=== PATIENT | male | born 1985 | race Caucasian/White ===

== ENCOUNTER 2020-09-28 17:14 | Emergency (ER) | payer SELFPAY ==
[~2020-09-28] VITALS: Ht 162.5 cm; Wt 77.4 kg
[2020-09-28 17:28] VITALS: BP 120/89
[2020-09-28] MEDS ORDERED: CYCL10TA9 PO (17:29)
[2020-09-28] MEDS ORDERED: IBUP-1780 PO (17:29)
--- NOTE | 2020-09-28 17:30 | ED General ---
General Stated Complaint: FLANK PAIN Source of Information: Patient Exam Limitations: No Limitations History of Present Illness Date Seen by Provider: Sep 28, 2020 Time Seen by Provider: 17:25 Initial Comments 35-year-old male presents via EMS with complaint of right side pain for the past 1 day. States that it started spontaneously, not precipitated by any movement or trauma. He admits always been doing his laying around, not working and not doing much. Just moved to this area 1 month ago and has not established any medical care, although he has no chronic conditions. Has taken nothing for pain. Has not attempted to see a clinic doctor. No recent illness, fever or chills, cough or shortness of air at rest. Pain is worse with movement and worse with deep breath on his right side. Allergies and Home Medications Home Medications Cyclobenzaprine HCl 10 Mg Tablet, 10 MG PO Q8H PRN for SPASMS Prescribed by: AUGUSTO MANDUJANO on 09/28/201728 Ibuprofen 800 Mg Tablet, 800 MG PO Q8H PRN for PAIN Prescribed by: AUGUSTO MANDUJANO on 09/28/201728 Patient Home Medication List Home Medication List Reviewed: Yes Review of Systems Review of Systems Constitutional: no symptoms reported; No chills, No fever, No malaise, No weakness EENTM: no symptoms reported Respiratory: see HPI; No cough, No hemoptysis, No orthopnea, No phlegm, No short of breath, No stridor, No wheezing Cardiovascular: No chest pain, No edema, No palpitations Gastrointestinal: no symptoms reported Musculoskeletal: see HPI; No back pain, No joint pain; muscle pain (R lateral chest wall) Skin: No change in color, No lesions, No rash Past Bgprpoy-Qtvpia-Mwffda Hx Past Med/Social Hx: Reviewed Nursing Past Med/Soc Hx Physical Exam Vital Signs Capillary Refill : Height, Weight, BMI Height: '" Weight: lbs. oz. kg; BMI Method: General Appearance: No Apparent Distress, WD/WN Respiratory: Chest Non Tender, Lungs Clear, Normal Breath Sounds, No Accessory Muscle Use, No Respiratory Distress Cardiovascular: Regular Rate, Rhythm, No Edema, No Gallop, No JVD, No Murmur Gastrointestinal: Normal Bowel Sounds, Non Tender, Soft Back: Normal Inspection, No CVA Tenderness, No Vertebral Tenderness Extremity: Normal Capillary Refill, Normal Inspection, Non Tender Neurologic/Psychiatric: Alert, Oriented x3 Progress/Results/Core Measures Suspected Sepsis SIRS Temperature: Pulse: Respiratory Rate: Blood Pressure / Mean: Results/Orders Vital Signs/I&O Capillary Refill : Departure Impression Primary Impression: Muscle strain of chest wall Qualified Codes: S29.011A - Strain of muscle and tendon of front wall of thorax, initial encounter Disposition: HOME, SELF-CARE Condition: Stable Departure-Patient Inst. Decision time for Depature: 17:26 [facility]: [facility] Instructions: Muscle Strain (DC) Add. Discharge Instructions: [facility] if not improving, ER sooner if worse and unable to see a provider at the clinic Scripts Ibuprofen (Ibuprofen) 800 Mg Tablet 800 MG PO Q8H PRN for PAIN, #30 TAB 0 Refills Prov: AUGUSTO MANDUJANO DO 09/28/20 Cyclobenzaprine HCl (Cyclobenzaprine HCl) 10 Mg Tablet 10 MG PO Q8H PRN for SPASMS, #15 TAB 0 Refills Prov: AUGUSTO MANDUJANO DO 09/28/20 AUGUSTO MANDUJANO DO Sep 28, 2020 17:29
== END 2020-09-28 17:39 | disposition home or self-care (01) ==
LOC: ER FS 17:15
DX: S29.011A Strain of muscle and tendon of front wall of thorax, initial encounter (principal); X58.XXXA Exposure to other specified factors, initial encounter
CPT/HCPCS: 99283

== ENCOUNTER 2020-10-05 23:17 | Emergency (ER) | payer SELFPAY ==
[~2020-10-05] VITALS: Ht 162.6 cm; Wt 81.6 kg
[~2020-10-05 23:17] MED LIST: CYCL10TA9 PO; IBUP-1780 PO
[2020-10-05 23:26] VITALS: BP 135/73
[2020-10-06] MEDS ORDERED: methylPREDNISolone 80 MG/ML (DEPO MEDROL) VIAL IM STA (00:21)
[2020-10-06] MEDS ORDERED: AZITHROMYCIN 250 MG TAB (ZITHROMAX) PO STA (00:21)
[2020-10-06] MEDS ORDERED: AZIT250T12 PO (00:27)
--- NOTE | 2020-10-06 00:27 | ED General ---
General Chief Complaint: Chest Wall Stated Complaint: DIFF BREATHING W/ DEEP BREATHES Nursing Triage Note: pt seen 1 week ago for chest wall pain, states no improvement in condition, did not get flexeril script filled Nursing Sepsis Screen: No Definite Risk Source of Information: Patient History of Present Illness Date Seen by Provider: Oct 05, 2020 Time Seen by Provider: 23:31 Initial Comments 35-year-old male presenting by EMS after having continued right sided chest wall pain. He was seen a week ago for the same thing and states that medication had not helped while he was in the ED and he did not have any money to fill the prescriptions. He continued to have pain and felt like he was having "bubbling in his chest on the right side with certain movements and breathing. He denied any fever or chills. He is a smoker. He denies any direct trauma to his chest wall. He has not called the [facility] clinic to try and establish any follow-up. Allergies and Home Medications Allergies Coded Allergies: No Known Drug Allergies (Unverified , 09/28/20) Home Medications Azithromycin 250 Mg Tablet, 250 MG PO DAILY Prescribed by: MARIANNE LEAHY on 10/06/20 0027 Cyclobenzaprine HCl 10 Mg Tablet, 10 MG PO Q8H PRN for SPASMS Prescribed by: AUGUSTO ESPINOSASTCRUZ on 09/28/20 1729 Ibuprofen 800 Mg Tablet, 800 MG PO Q8H PRN for PAIN Prescribed by: AUGUSTO ESPINOSASTCRUZ on 09/28/20 1729 Patient Home Medication List Home Medication List Reviewed: Yes Review of Systems Review of Systems Constitutional: No chills, No fever EENTM: no symptoms reported Respiratory: see HPI, cough; No wheezing Cardiovascular: chest pain (Pleuritic chest wall pain on the right side) Gastrointestinal: No nausea, No vomiting Genitourinary: no symptoms reported Musculoskeletal: no symptoms reported Skin: no symptoms reported Psychiatric/Neurological: No Symptoms Reported Past Xolkksb-Qmjloj-Pugoxo Hx Past Med/Social Hx: Reviewed Nursing Past Med/Soc Hx Patient Social History Alcohol Use: Denies Use Drug of Choice: Hx of meth use Smoking Status: Current Everyday Smoker Type Used: Cigarettes 2nd Hand Smoke Exposure: No Recent Infectious Disease Expo: No Recent Hopitalizations: No Seasonal Allergies Seasonal Allergies: No Past Medical History Surgeries: Yes (Fisure repair) Rectal Respiratory: No Cardiac: No Neurological: No Genitourinary: No Gastrointestinal: Yes (Rectal fisures) Musculoskeletal: No Endocrine: No HEENT: No Cancer: No Psychosocial: No Blood Disorders: No Physical Exam Vital Signs Vital Signs - First Documented 10/05/20 23:26 Temp 36.9 Pulse 95 B/P (MAP) 135/73 (93) Pulse Ox 100 O2 Delivery Room Air Capillary Refill : Less Than 3 Seconds Height, Weight, BMI Height: '" Weight: lbs. oz. kg; 30.00 BMI Method: General Appearance: No Apparent Distress, WD/WN HEENT: PERRL/EOMI, Pharynx Normal Neck: Full Range of Motion, Non Tender, Supple Respiratory: Lungs Clear, Normal Breath Sounds, No Accessory Muscle Use, No Respiratory Distress; No Pleural Rub, No Rales, No Rhonci, No Stridor, No Wheezing; Other (Tender to palpation on the right lateral chest wall. There is no crepitus or rales) Cardiovascular: Regular Rate, Rhythm, Normal Peripheral Pulses Extremity: Normal Capillary Refill, No Pedal Edema Neurologic/Psychiatric: Alert, Oriented x3 Skin: Normal Color, Warm/Dry Progress/Results/Core Measures Suspected Sepsis Recent Fever Within 48 Hours: No Infection Criteria Present: None New/Unexplained Altered Menta: No Sepsis Screen: No Definite Risk SIRS Temperature: Pulse: 95 Respiratory Rate: Blood Pressure 135 /73 Mean: 93 Results/Orders My Orders Orders - MARIANNE LEAHY MD Chest Pa/Lat (2 View) (10/05/20 23:25) Dexamethasone Injection (Decadron Inje (10/06/20 00:21) Methylprednisolone Acetate Inj (Depo-Med (10/06/20 00:21) Azithromycin Tablet (Zithromax Tablet) (10/06/20 00:21) Vital Signs/I&O 10/05/20 23:26 Temp 36.9 Pulse 95 B/P (MAP) 135/73 (93) Pulse Ox 100 O2 Delivery Room Air Capillary Refill : Less Than 3 Seconds Blood Pressure Mean: 93 Progress Note : Progress Note 2 view chest x-ray did not show any acute pneumonia or pneumothorax. He had no pleural effusion. On my review it looks like he may have some mild inflammation of his lung on the right side compared to the left. With him having some tenderness of the chest wall and increased pain with deep breaths for some pleuritic type chest pain will try a steroid shot here as well as treating him with Zithromax. Counseled on follow-up and return precautions. Advised to check with the clinic at [facility] since he reports that he does not have money to fill prescriptions or get in with PCP Diagnostic Imaging Diagonstic Imaging: Xray Plain Films/CT/US/NM/MRI: chest Comments On my review of his two-view chest x-ray he did not show any definite pne umothorax, pleural effusion, rib fracture. There was some mild inflammation of the lung on the right compared to the left. Departure Impression Primary Impression: Chest wall pain Additional Impressions: Bronchitis Tobacco abuse Pleuritic chest pain Disposition: HOME, SELF-CARE Condition: Stable Departure-Patient Inst. Decision time for Depature: 00:24 Referrals: NO,LOCAL PHYSICIAN (PCP) Primary Care Physician [facility] Patient Instructions: Bronchitis, Adult ED, Quitting Smoking, Pleuritic Chest Pain (DC) Add. Discharge Instructions: Stay well hydrated and get plenty of rest Take the full course of antibiotics to treat for infection and this will help with the inflammation in your side and chest wall. If you have worsening symptoms or are not improving then check in with clinic at [facility] by calling [phone] and setting up and appointment. All discharge instructions reviewed with patient and/or family. Voiced understanding. Scripts Azithromycin (Azithromycin) 250 Mg Tablet 250 MG PO DAILY for 4 Days, #4 TAB 0 Refills Prov: MARIANNE LEAHY MD 10/06/20 MARIANNE LEAHY MD Oct 06, 2020 00:27
--- NOTE | 2020-10-06 06:59 | Diagnostic Imaging Report ---
INDICATION: chest wall pain. TECHNIQUE: Two view chest 11:26 PM CORRELATION STUDY: None FINDINGS: The heart size, mediastinal configuration and pulmonary vasculature are within normal limits. The lungs are clear with no consolidating infiltrate. There is slight blunting of the costophrenic angles which trace pleural effusion versus pleural thickening not excluded.. Visualized osseous structures are unremarkable. IMPRESSION: 1. Negative for acute abnormality of the chest. Question potential trace pleural effusion versus pleural thickening. Dictated by: Dictated on workstation # [id number]
== END 2020-10-06 00:32 | disposition home or self-care (01) ==
LOC: EDUNIT# 23:17 → ER FS 23:19
DX: R07.89 Other chest pain (principal); J40 Bronchitis, not specified as acute or chronic; R07.81 Pleurodynia; I10 Essential (primary) hypertension; F17.200 Nicotine dependence, unspecified, uncomplicated; F17.210 Nicotine dependence, cigarettes, uncomplicated
CPT/HCPCS: 71046; 99284

== ENCOUNTER 2020-11-29 11:46 | Inpatient (IN) | payer SELFPAY ==
[~2020-11-29] VITALS: Ht 170 cm; Wt 77.0 kg
[~2020-11-29 11:46] MED LIST changes: +AZIT250T12 PO
[2020-11-29 12:32] LABS: BASOPHILS % (AUTO) 1 % (0-10); EOSINOPHILS # (AUTO) 0.1 10^3/uL (0.0-0.3); EOSINOPHILS % (AUTO) 1 % (0-10); HEMATOCRIT 42 % (40-54); HEMOGLOBIN 12.1 g/dL (13.3-17.7); LYMPHOCYTES # (AUTO) 1.4 10^3/uL (1.0-4.0); LYMPHOCYTES % (AUTO) 18 % (12-44); MEAN CORPUSCULAR HEMOGLOBIN 20 pg (25-34); MEAN CORPUSCULAR HGB CONC 29 g/dL (32-36); MEAN CORPUSCULAR VOLUME 69 fL (80-99); MEAN PLATELET VOLUME 8.2 fL (9.0-12.2); MONOCYTES # (AUTO) 0.7 10^3/uL (0.0-1.0); MONOCYTES % (AUTO) 9 % (0-12); NEUTROPHILS # (AUTO) 5.5 10^3/uL (1.8-7.8); NEUTROPHILS % (AUTO) 71 % (42-75); PLATELET COUNT 373 10^3/uL (130-400); WHITE BLOOD COUNT 7.7 10^3/uL (4.3-11.0)
--- NOTE | 2020-11-29 12:33 | ED Psychosocial ---
General Chief Complaint: Substance Abuse Stated Complaint: PSYCH EVAL,DETOX Nursing Triage Note: ARRIVED VIA AMB ET STATES HE WANTS DETOXED FROM ETOH. LAST DRINK WAS 2 DAYS AGO. Source: patient Exam Limitations: no limitations History of Present Illness Date Seen by Provider: November 29, 2020 Time Seen by Provider: 12:19 Initial Comments This is a disheveled 35-year-old homeless male presents to the ER via POV with a lady who picked him up off the street yesterday. States that she cleaned him up and was trying to help him. Last night he got a hold of a magic marker and colored all over his face and body. States that he is an alcoholic and he drinks "whatever I can get my hands on". He has been doing this for the past 7 years. States that he has not drank any alcohol for a couple days. Denies any illicit drug use. States that he was recently diagnosed with anal fissures and is taking medication for that, otherwise has no past medical history. He is currently denying any pain. Denies suicidal ideation. Denies visual, auditory hallucinations. Denies fever, chills, cough, shortness of breath, nausea, vomiting, abdominal pain. Allergies and Home Medications Allergies Coded Allergies: No Known Drug Allergies (Unverified , 11/29/20) Home Medications Azithromycin 250 Mg Tablet, 250 MG PO DAILY Prescribed by: MARIANNE LEAHY on 10/06/20 0027 Cyclobenzaprine HCl 10 Mg Tablet, 10 MG PO Q8H PRN for SPASMS Prescribed by: AUGUSTO ESPINOSASTCRUZ on 09/28/20 1729 Ibuprofen 800 Mg Tablet, 800 MG PO Q8H PRN for PAIN Prescribed by: AUGUSTO MANDUJANO on 09/28/20 1729 Patient Home Medication List Home Medication List Reviewed: Yes Review of Systems Constitutional: no symptoms reported EENTM: no symptoms reported Respiratory: no symptoms reported Cardiovascular: no symptoms reported Gastrointestinal: no symptoms reported Genitourinary: no symptoms reported Musculoskeletal: no symptoms reported Skin: no symptoms reported Psychiatric/Neurological: See HPI Past Lwasiyh-Fhnznr-Czstwi Hx Patient Social History Alcohol Use: Regular Use Number of Drinks Today: 0 Drug of Choice: Hx of meth use- DENIES AT THIS VISIT Smoking Status: Current Everyday Smoker Type Used: Cigarettes, Electronic/Vapor 2nd Hand Smoke Exposure: No Recent Infectious Disease Expo: No Recent Hopitalizations: No Seasonal Allergies Seasonal Allergies: No Past Medical History Surgeries: Yes (Fisure repair) Orthopedic, Rectal Respiratory: No Cardiac: No Neurological: No Genitourinary: No Gastrointestinal: Yes (Rectal fisures) Musculoskeletal: No Endocrine: No HEENT: No Cancer: No Psychosocial: No Integumentary: No Blood Disorders: No Physical Exam Vital Signs - First Documented 11/29/20 11/29/20 12:15 15:48 Temp 36.6 Pulse 99 Resp 16 B/P (MAP) 148/88 (108) Pulse Ox 97 O2 Delivery Room Air FiO2 21 Capillary Refill : Less Than 3 Seconds Height, Weight, BMI Height: '" Weight: lbs. oz. kg; 26.00 BMI Method: General Appearance: WD/WN, no apparent distress HEENT: PERRL/EOMI, normal ENT inspection Neck: full range of motion, normal inspection Respiratory: lungs clear, normal breath sounds, no respiratory distress Cardiovascular: normal peripheral pulses, regular rate, rhythm Gastrointestinal: normal bowel sounds, non tender, soft Extremities: normal range of motion, non-tender, normal inspection Neurologic/Psychiatric: no motor/sensory deficits, alert, normal mood/affect, oriented x 3 Appearance/Memory: appropriate insight, disheveled Behavior/Eye Contact: cooperative, good eye contact, normal speech Thoughts/Hallucinations: normal thought pattern, no apparent hallucination; No delusions, No flight of ideas Skin: normal color, warm/dry Progress/Results/Core Measures Results/Orders Lab Results Laboratory Tests Test 11/29/20 12:20 11/29/20 12:40 Range/Units White Blood Count 7.7 4.3-11.0 10^3/uL Red Blood Count 6.07 H 4.30-5.52 10^6/uL Hemoglobin 12.1 L 13.3-17.7 g/dL Hematocrit 42 40-54 % Mean Corpuscular Volume 69 L 80-99 fL Mean Corpuscular Hemoglobin 20 L 25-34 pg Mean Corpuscular Hemoglobin Concent 29 L 32-36 g/dL Red Cell Distribution Width 21.7 H 10.0-14.5 % Platelet Count 373 130-400 10^3/uL Mean Platelet Volume 8.2 L 9.0-12.2 fL Immature Granulocyte % (Auto) 0 % Neutrophils (%) (Auto) 71 42-75 % Lymphocytes (%) (Auto) 18 12-44 % Monocytes (%) (Auto) 9 0-12 % Eosinophils (%) (Auto) 1 0-10 % Basophils (%) (Auto) 1 0-10 % Neutrophils # (Auto) 5.5 1.8-7.8 10^3/uL Lymphocytes # (Auto) 1.4 1.0-4.0 10^3/uL Monocytes # (Auto) 0.7 0.0-1.0 10^3/uL Eosinophils # (Auto) 0.1 0.0-0.3 10^3/uL Basophils # (Auto) 0.0 0.0-0.1 10^3/uL Immature Granulocyte # (Auto) 0.0 0.0-0.1 10^3/uL Sodium Level 138 135-145 MMOL/L Potassium Level 3.8 3.6-5.0 MMOL/L Chloride Level 103 98-107 MMOL/L Carbon Dioxide Level 26 21-32 MMOL/L Anion Gap 9 5-14 MMOL/L Blood Urea Nitrogen 8 7-18 MG/DL Creatinine 0.89 0.60-1.30 MG/DL Estimat Glomerular Filtration Rate > 60 BUN/Creatinine Ratio 9 Glucose Level 75 70-105 MG/DL Calcium Level 9.4 8.5-10.1 MG/DL Corrected Calcium 9.1 8.5-10.1 MG/DL Total Bilirubin 0.3 0.1-1.0 MG/DL Aspartate Amino Transf (AST/SGOT) 16 5-34 U/L Alanine Aminotransferase (ALT/SGPT) 13 0-55 U/L Alkaline Phosphatase 60 40-136 U/L Total Protein 7.7 6.4-8.2 GM/DL Albumin 4.4 3.2-4.5 GM/DL Salicylates Level < 5.0 L 5.0-20.0 MG/DL Acetaminophen Level < 10 L 10-30 UG/ML Serum Alcohol < 10 <10 MG/DL Urine Color YELLOW Urine Clarity CLEAR Urine pH 6.5 5-9 Urine Specific [place] 1.010 L 1.016-1.022 Urine Protein NEGATIVE NEGATIVE Urine Glucose (UA) NEGATIVE NEGATIVE Urine Ketones NEGATIVE NEGATIVE Urine Nitrite NEGATIVE NEGATIVE Urine Bilirubin NEGATIVE NEGATIVE Urine Urobilinogen 0.2 < = 1.0 MG/DL Urine Leukocyte Esterase NEGATIVE NEGATIVE Urine RBC (Auto) NEGATIVE NEGATIVE Urine RBC NONE /HPF Urine WBC RARE /HPF Urine Crystals NONE /LPF Urine Bacteria NEGATIVE /HPF Urine Casts NONE /LPF Urine Mucus NEGATIVE /LPF Urine Culture Indicated NO Urine Opiates Screen NEGATIVE NEGATIVE Urine Oxycodone Screen NEGATIVE NEGATIVE Urine Methadone Screen NEGATIVE NEGATIVE Urine Propoxyphene Screen NEGATIVE NEGATIVE Urine Barbiturates Screen NEGATIVE NEGATIVE Ur Tricyclic Antidepressants Screen NEGATIVE NEGATIVE Urine Phencyclidine Screen NEGATIVE NEGATIVE Urine Amphetamines Screen NEGATIVE NEGATIVE Urine Methamphetamines Screen NEGATIVE NEGATIVE Urine Benzodiazepines Screen NEGATIVE NEGATIVE Urine Cocaine Screen NEGATIVE NEGATIVE Urine Cannabinoids Screen NEGATIVE NEGATIVE My Orders Orders - ROSY DO PATIENT FINANCIAL SERVICES MANAGER Ua Culture If Indicated (11/29/20 12:20) Cbc With Automated Diff (11/29/20 12:20) Comprehensive Metabolic Panel (11/29/20 12:20) Alcohol (11/29/20 12:20) Drug Screen Stat (Urine) (11/29/20 12:20) Acetaminophen (11/29/20 12:20) Salicylate (11/29/20 12:20) Ekg Tracing (11/29/20 12:20) Ed Iv/Invasive Line Start (11/29/20 12:20) Monitor-Rhythm Ecg Trace Only (11/29/20 12:20) Lactated Ringers (Lr 1000 Ml Iv Solution (11/29/20 12:45) Medications Given in ED Current Medications Medications Dose Ordered Sig/Garrick Route Start Time Stop Time Status Last Admin Dose Admin Lactated Ringer's 1,000 ml @ 0 mls/hr Q0M ONCE IV 11/29/20 12:45 11/29/20 12:50 DC 11/29/20 13:07 1,000 MLS/HR Vital Signs/I&O 11/29/20 11/29/20 11/29/20 11/29/20 12:15 14:33 15:14 15:48 Temp 36.6 36.9 36.6 Pulse 99 87 78 99 Resp 16 16 18 B/P (MAP) 148/88 (108) 133/83 124/76 (92) Pulse Ox 97 98 98 97 O2 Delivery Room Air Room Air Room Air FiO2 21 11/29/20 15:52 Pulse Ox 98 O2 Delivery Room Air Blood Pressure Mean: 108 Progress Progress Note : Progress Note Patient examined and in no acute distress. Will initiate psychosocial work-up including labs. Pending labs will discuss case with hospitalist to evaluate for possible admission for alcohol detox. Labs reviewed and are unremarkable. Reviewed case with Dr. Rodriguez and agreeable with admission for alcohol detox. Initial ECG Impression Date: November 29, 2020 Initial ECG Impression Time: 12:20 Initial ECG Rate: 98 Initial ECG Rhythm: Normal Sinus Initial ECG Impression: Normal Departure Impression Primary Impression: Alcohol abuse Disposition: ADMITTED INPATIENT Condition: Stable Admissions Decision to Admit Reason: Admit from ER (General) Decision to Admit/Date: November 29, 2020 Time/Decision to Admit Time: 13:30 Departure-Patient Inst. Referrals: NO,LOCAL PHYSICIAN (PCP/Family) Primary Care Physician Patient Instructions: ALCOHOL AND SUBSTANCE ABUSE ROSY DO PATIENT FINANCIAL SERVICES MANAGER November 29, 2020 12:33
[2020-11-29 12:40] LABS: CHLORIDE 103 MMOL/L (98-107); POTASSIUM 3.8 MMOL/L (3.6-5.0); SODIUM 138 MMOL/L (135-145)
[2020-11-29 12:41] LABS: ALBUMIN 4.4 GM/DL (3.2-4.5)
[2020-11-29 12:42] LABS: CALCIUM 9.4 MG/DL (8.5-10.1)
[2020-11-29 12:43] LABS: GLUCOSE 75 MG/DL (70-105); TOTAL PROTEIN 7.7 GM/DL (6.4-8.2)
[2020-11-29 12:44] LABS: CARBON DIOXIDE 26 MMOL/L (21-32)
[2020-11-29 12:45] LABS: BILIRUBIN,TOTAL 0.3 MG/DL (0.1-1.0)
[2020-11-29] MEDS ORDERED: LACTATED RINGERS 1,000 ML IV ONE (12:45)
[2020-11-29 12:47] LABS: BILIRUBIN,URINE NEGATIVE (NEGATIVE); CLARITY,URINE CLEAR; COLOR,URINE YELLOW; GLUCOSE, URINE (UA) NEGATIVE (NEGATIVE); KETONES,URINE NEGATIVE (NEGATIVE); LEUKOCYTE ESTERASE ,URINE NEGATIVE (NEGATIVE); NITRITE,URINE NEGATIVE (NEGATIVE); PH,URINE 6.5 (5-9); PROTEIN,URINE NEGATIVE (NEGATIVE)
[2020-11-29 12:47] LABS: ALKALINE PHOSPHATASE 60 U/L (40-136); CREATININE SERUM 0.89 MG/DL (0.60-1.30); GFR ESTIMATED > 60
[2020-11-29 12:48] LABS: BUN/CREATININE RATIO 9
[2020-11-29 12:50] LABS: ALANINE AMINOTRANSFERASE 13 U/L (0-55); SALICYLATE < 5.0 MG/DL (5.0-20.0)
[2020-11-29 13:03] LABS: ACETAMINOPHEN < 10 UG/ML (10-30)
[2020-11-29 13:10] LABS: AMPHETAMINE SCREEN, URINE NEGATIVE (NEGATIVE); BARBITURATE SCREEN URINE NEGATIVE (NEGATIVE); BENZODIAZEPINES SCREEN URINE NEGATIVE (NEGATIVE); CANNABINOID SCREEN, URINE NEGATIVE (NEGATIVE); COCAINE SCREEN URINE NEGATIVE (NEGATIVE); METHADONE STAT NEGATIVE (NEGATIVE); METHAMPHETAMINE SCREEN URINE S NEGATIVE (NEGATIVE); OPIATE SCREEN URINE NEGATIVE (NEGATIVE); OXYCODONE STAT NEGATIVE (NEGATIVE); PROPOXYPHENE STAT NEGATIVE (NEGATIVE); TRICYCLIC ANTIDEPRESSANTS SCRE NEGATIVE (NEGATIVE)
[2020-11-29 13:12] LABS: BACTERIA,URINE NEGATIVE /HPF; WBC,URINE RARE /HPF
[2020-11-29 15:14] VITALS: BP 124/76
[2020-11-29] MEDS ORDERED: ONDANSETRON 4 MG/2 ML (SDV) Z0FRAN IV PRN (15:30)
[2020-11-29] MEDS ORDERED: ANTACID SUSP 30 ML UDC (MYLANTA) PO PRN (15:30)
[2020-11-29] MEDS ORDERED: ONDANSETRON 4 MG (ZOFRAN) ORAL DISSOLVE TAB SL PRN (15:30)
[2020-11-29] MEDS ORDERED: D5 1/2 NS 1000 ML IV SOLUTION 1,000 ML IV PRN (15:30)
[2020-11-29] MEDS ORDERED: LORazepam 1 MG (ATIVAN) TAB PO PRN (15:30)
[2020-11-29] MEDS ORDERED: 1/2 NS IV SOLUTION 1,000 ML IV PRN (15:30)
[2020-11-29] MEDS ORDERED: LORazepam INJ 2 MG/ML (ATIVAN) VIAL IV PRN (15:30)
[2020-11-29] MEDS ORDERED: SENNA W/DOCUSATE (SENOKOT S) TABLET PO PRN (15:30)
[2020-11-29] MEDS ORDERED: LORazepam INJ 2 MG/ML (ATIVAN) VIAL IM/IV PRN (15:30)
[2020-11-29 15:48] VITALS: BP 148/88
[2020-11-29] MEDS ORDERED: ONDANSETRON 4 MG/2 ML (SDV) Z0FRAN IVP PRN (16:00)
[2020-11-29] MEDS ORDERED: ACETAMINOPHEN 325 MG TABLET PO PRN (16:00)
[2020-11-29] MEDS ORDERED: RT-ALBUTEROL/IPRATROPIUM 3 ML (DUONEB) VIAL INH PRN (17:00)
[2020-11-29] MEDS ORDERED: RT-ALBUTEROL/IPRATROPIUM 3 ML (DUONEB) VIAL INH SCH (21:00)
--- NOTE | 2020-11-30 07:33 | Short Stay Summary-Hospitalist ---
History of Present Illness Date Seen 11/30/20 Attending Physician Terry Rodriguez MD PCP No,Local Physician Referring Physician Date of Admission November 29, 2020 at 13:39 Home Medications & Allergies Home Medications Reviewed patient Home Medication Reconciliation performed by pharmacy medication reconciliations motor vehicle technician and/or nursing. Patients Allergies have been reviewed. Allergies Allergies Coded Allergies No Known Drug Allergies (Unverified11/29/20) Past Fyuaxpb-Kxawds-Aelfdb Hx Patient Social History Alcohol Use: Regular Use Recreational Drug Use: No Drug of Choice: Hx of meth use- DENIES AT THIS VISIT Smoking Status: Current Everyday Smoker Type Used: Cigarettes, Electronic/Vapor 2nd Hand Smoke Exposure: No Recent Foreign Travel: No Contact w/other who traveled: No Recent Hopitalizations: No Recent Infectious Disease Expo: No Seasonal Allergies Seasonal Allergies: No Past Medical History Surgeries: Orthopedic, Rectal History of Blood Disorders: No Physical Exam Physical Exam Vital Signs Vital Signs - First Documented 11/29/20 11/29/20 12:15 15:48 Temp 36.6 Pulse 99 Resp 16 B/P (MAP) 148/88 (108) Pulse Ox 97 O2 Delivery Room Air FiO2 21 Capillary Refill : Less Than 3 Seconds Height, Weight, BMI Height: '" Weight: lbs. oz. kg; 26.64 BMI Method: Results Results/Procedures Labs Laboratory Tests 11/29/20 12:20 Patient resulted labs reviewed. TERRY RODRIGUEZ MD November 30, 2020 07:33
[2020-11-30] MEDS ORDERED: THIAMINE INJECTION 100 MG, FOLIC ACID INJECTION 1 MG, MAGNESIUM SULFATE 2 GM, VITAMIN M... IV SCH ×5 (09:00)
== END 2020-11-29 17:20 | disposition left against medical advice (07) | DRG 894 ==
LOC: EDUNIT# 11:46 → ER 11:48 → 4TH 13:39
PROVIDERS: ADMIT Family Medicine; ATTEND Family Medicine
DX: F10.10 Alcohol abuse, uncomplicated (principal); F17.210 Nicotine dependence, cigarettes, uncomplicated; Z79.2 Long term (current) use of antibiotics
CPT/HCPCS: 36415; 80053; 80306; 80320; 80329; 81000; 85025; 93005